=== PATIENT | female | born 1980 | race Caucasian/White ===

== ENCOUNTER → 2020-05-10 | Outpatient (CLI) | payer OTHER ==
[~2020-05-10] MED LIST: DIPH50 PO; FLUO10 PO; Ventolin/Prove6.7 GM INH; Zofran Odt4 MG PO
[2020-05-12 01:08] LABS: CHLAMYDIA TRACHOMATIS, NAA Negative (Negative); NEISSERIA GONORRHOEAE, NAA Negative (Negative)
== END | disposition home or self-care (01) ==
LOC: LAB 16:04 → LAB SHORT 16:04
PROVIDERS: Nurse Practitioner Family
DX: Z11.59 Encounter for screening for other viral diseases (principal)
CPT/HCPCS: 87491; 87591

== ENCOUNTER → 2021-03-30 | Outpatient (CLI) | payer OTHER | LOC: LAB SHORT 09:27 → LAB 09:27 | DX: R10.9 Unspecified abdominal pain (principal); Z88.8 Allergy status to other drugs, medicaments and biological substances; Z91.013 Allergy to seafood | CPT/HCPCS: 87086 ==

== ENCOUNTER → 2021-04-21 | Outpatient (CLI) | payer OTHER ==
[2021-04-21 13:39] LABS: BASOPHILS ABSOLUTE AUTO 0.02 K/mm3 (0.00-0.23); BASOPHILS PERCENT AUTO 0 % (0-2); EOSINOPHILS ABSOLUTE AUTO 0.27 K/mm3 (0.00-0.68); EOSINOPHILS PERCENT AUTO 4 % (0-6); Hematocrit 42.3 % (33.0-51.0); Hemoglobin 14.6 g/dL (11.5-16.0); IMMATURE GRAN ABSOLUTE AUTO 0.01 K/mm3 (0.00-0.10); IMMATURE GRAN PERCENT AUTO 0 % (0-1); LYMPHOCYTES ABSOLUTE AUTO 1.93 K/mm3 (0.84-5.20); LYMPHOCYTES PERCENT AUTO 28 % (21-46); MONOCYTES ABSOLUTE AUTO 0.76 K/mm3 (0.16-1.47); MONOCYTES PERCENT AUTO 11 % (4-13); Mean Corpuscular HGB 31.5 pg (26.0-34.0); Mean Corpuscular HGB Conc 34.5 g/dL (31.5-36.5); Mean Corpuscular Volume 91 fL (80-100); Mean Platelet Volume 11.8 fL (9.1-12.4); NEUTROPHILS ABSOLUTE AUTO 3.89 K/mm3 (1.96-9.15); NEUTROPHILS PERCENT AUTO 57 % (41-73); Platelet Count 219 K/mm3 (150-400); RDW Coefficient Variation 12.7 % (11.7-14.2); RDW Standard Deviation 42.3 fL (35.1-46.3); Red Blood Cell Count 4.63 M/mm3 (3.80-5.20); White Blood Cell Count 6.88 K/mm3 (4.00-11.30)
[2021-04-21 14:11] LABS: Alanine Aminotransfer (ALT/SGP 35 U/L (12-78); Albumin, Blood 3.7 g/dL (3.4-5.0); Albumin/Globulin Ratio 0.9 (0.8-1.8); Alk Phos 44 U/L (50-136); Anion Gap 3 mmol/L (6-16); Aspartate Aminotrans (AST/SGOT 16 U/L (12-37); Bilirubin, Total 0.4 mg/dL (0.1-1.0); Blood Urea Nitrogen 12 mg/dL (8-24); Bun/Creatinine Ratio 14.8 (12.0-20.0); CO2, Blood 29 mmol/L (21-32); Chloride, Blood 105 mmol/L (98-108); Creatinine, Blood 0.81 mg/dL (0.40-1.00); Globulin, Blood 4.3 g/dL (2.2-4.0); Glomerular Filtration Rate >60 (60-); Glucose, Blood 87 mg/dL (70-99); Potassium, Blood 4.3 mmol/L (3.5-5.5); Sodium, Blood 137 mmol/L (136-145)
== END | disposition home or self-care (01) ==
LOC: LAB SHORT 11:30 → LAB 11:30
PROVIDERS: Nurse Practitioner Family
DX: Z13.29 Encounter for screening for other suspected endocrine disorder (principal); N93.9 Abnormal uterine and vaginal bleeding, unspecified
CPT/HCPCS: 80053; 84443; 84702; 85025

== ENCOUNTER → 2021-05-08 | Outpatient (CLI) | payer OTHER | END | disposition home or self-care (01) | LOC: LAB SHORT 18:16 | DX: R35.0 Frequency of micturition (principal) | CPT/HCPCS: 87086 ==

== ENCOUNTER → 2022-04-04 | Outpatient (CLI) | payer OTHER | END | disposition home or self-care (01) | LOC: LAB 16:50 → LAB SHORT 16:50 | DX: N39.0 Urinary tract infection, site not specified (principal) | CPT/HCPCS: 87077; 87086; 87186 ==

== ENCOUNTER 2023-01-23 20:42 | Inpatient (IN) | payer OTHER ==
[~2023-01-23] VITALS: Ht 157.5 cm; Wt 72.7 kg
[2023-01-23 21:37] VITALS: BP 120/80
[2023-01-23 21:40] LABS: BASOPHILS ABSOLUTE AUTO 0.01 K/mm3 (0.00-0.23); BASOPHILS PERCENT AUTO 0 % (0-2); EOSINOPHILS ABSOLUTE AUTO 0.07 K/mm3 (0.00-0.68); EOSINOPHILS PERCENT AUTO 1 % (0-6); Hematocrit 33.4 % (33.0-51.0); Hemoglobin 12.2 g/dL (11.5-16.0); IMMATURE GRAN ABSOLUTE AUTO 0.02 K/mm3 (0.00-0.10); IMMATURE GRAN PERCENT AUTO 0 % (0-1); LYMPHOCYTES ABSOLUTE AUTO 1.78 K/mm3 (0.84-5.20); LYMPHOCYTES PERCENT AUTO 22 % (21-46); MONOCYTES ABSOLUTE AUTO 0.85 K/mm3 (0.16-1.47); MONOCYTES PERCENT AUTO 11 % (4-13); Mean Corpuscular HGB 32.5 pg (26.0-34.0); Mean Corpuscular HGB Conc 36.5 g/dL (31.5-36.5); Mean Corpuscular Volume 89 fL (80-100); Mean Platelet Volume 11.4 fL (9.1-12.4); NEUTROPHILS ABSOLUTE AUTO 5.31 K/mm3 (1.96-9.15); NEUTROPHILS PERCENT AUTO 66 % (41-73); Platelet Count 179 K/mm3 (150-400); RDW Coefficient Variation 12.4 % (11.7-14.2); RDW Standard Deviation 39.8 fL (35.1-46.3); Red Blood Cell Count 3.75 M/mm3 (3.80-5.20); White Blood Cell Count 8.04 K/mm3 (4.00-11.30)
[2023-01-23] MEDS ORDERED: PRENATAL TABLE1 EAC2 PO (22:25)
[2023-01-23 23:56] VITALS: BP 121/73
[2023-01-24] VITALS (18 sets, daily range): BP systolic 115–137; BP diastolic 67–89
--- NOTE | 2023-01-24 06:43 | NUR ---
FOB INVOLVEMENT: UPON ADMISSION PT STATES SHE WONT ALLOW FO[place]odia TO PARENT WITHOUT GETTING HELP. PT ALSO ADMITS THAT SHE IS AWARE SHE WOULD BENEFIT FROM RECIEVING COUNSELING FOR PREVIOUS LIFE EVENTS. PT BELIEVES ARIELA TO CURRENTLY BE ON DRUGS, WIHTOUT EVIDENCE OTHER THAN FOB ADMITTING TO HAVING BEEN UP FOR 48 HOURS STRAIGHT. PT HAS CUT MOST CONTACT WITH FOB AND IS UNSURE ON IF THEIR RELATIONSHIP WILL CONTINUE AT THIS TIME. PT ADMITS THAT ARIELA IS "UNFIT TO PARENT WITHOUT GETTING HELP FOR HIS DRUGS, GETTING A JOB, AND HOLDING DOWN A JOB". FOB HAD REACHED OUT TO PT MULTIPLE TIMES DURING FLOOR COVERER APPRENTICE, PT DENIES RESPONDING OR TELLING FOB ABOUT INDUCTION. PASSWORD IN PLACE FOR CONFIDENTIALITY.
--- NOTE | 2023-01-24 08:00 | NUR ---
PT EDUCATED ON [facility] NO SMOKING POLICY WELL RISK OF IGNITABLES IN ROOM INCLUDING BUT NOT LIMITED TO LIGHTERS, VAPE PENS, CANDLES, ETC. PT STATES UNDERSTANDING AND DENIES HAVING ANY OF THESE ITEMS.
--- NOTE | 2023-01-24 09:45 | NUR ---
FOB Pt divolging hx with FOB- States he's not around but has continued to text her throughout the night/morning. He was with her at her last OB appointment. She tells this RN that she was recently with him but has her own apartment, although he knows where it is. She was apparently going to get a restraining order the day she came in for induction but states she woke up at 8:30 and she had to be there by 7:30. She reports that he has been using meth and is not right in the head, that he was wanting her to refuse all nb care but she told him no. She also states he is not allowed around her youngest daughter d/t [place] allegations, although she states those were unfounded.
--- NOTE | 2023-01-24 15:20 | NUR ---
PT DECLINING TO HAVE BP CUFF REMAIN ON FOR RECOVERY PERIOD SHE STATES IT'S IN THE WAY OF /HOLDING NB.
[2023-01-25 02:58] VITALS: BP 113/75
[2023-01-25 05:59] LABS: Hematocrit 34.2 % (33.0-51.0); Hemoglobin 12.2 g/dL (11.5-16.0); Mean Corpuscular HGB 31.8 pg (26.0-34.0); Mean Corpuscular HGB Conc 35.7 g/dL (31.5-36.5); Mean Corpuscular Volume 89 fL (80-100); Mean Platelet Volume 11.5 fL (9.1-12.4); Platelet Count 164 K/mm3 (150-400); RDW Coefficient Variation 12.6 % (11.7-14.2); RDW Standard Deviation 40.8 fL (35.1-46.3); Red Blood Cell Count 3.84 M/mm3 (3.80-5.20); White Blood Cell Count 11.28 K/mm3 (4.00-11.30)
[2023-01-25 07:58] VITALS: BP 114/71
[2023-01-25 11:28] VITALS: BP 135/83
[2023-01-25 14:16] VITALS: BP 124/83
[2023-01-25 17:45] VITALS: BP 126/93
== END 2023-01-25 18:05 | disposition home or self-care (01) | DRG 807 ==
LOC: OBS 20:42 → BC 20:44 → OBS 20:55 → BC 20:56
PROVIDERS: ADMIT Advanced Practice Midwife
PROC: 10E0XZZ Delivery of Products of Conception, External Approach (ICD-10-PCS; principal; 2023-01-24)
PROC: 3E033VJ Introduction of Other Hormone into Peripheral Vein, Percutaneous Approach (ICD-10-PCS; 2023-01-24)
PROC: 3E0P7VZ Introduction of Hormone into Female Reproductive, Via Natural or Artificial Opening (ICD-10-PCS; 2023-01-24)
DX: O80 Encounter for full-term uncomplicated delivery (principal); Z37.0 Single live birth; O69.1XX0 Labor and delivery complicated by cord around neck, with compression, not applicable or unspecified; Z3A.39 39 weeks gestation of pregnancy; Z67.10 Type A blood, Rh positive; Z88.8 Allergy status to other drugs, medicaments and biological substances; Z91.030 Bee allergy status; Z91.038 Other insect allergy status; Z91.013 Allergy to seafood
CPT/HCPCS: 36415; 85025; 85027; 86850; 86900; 86901; A9270; J1885; J2210; J2590; J3010; J7120

== ENCOUNTER 2024-04-22 13:36 | Emergency (ER) | payer OTHER ==
[~2024-04-22] VITALS: Ht 154.9 cm; Wt 68.0 kg
[~2024-04-22 13:36] MED LIST changes: +PRENATAL TABLE1 EAC2 PO
[2024-04-22 14:51] LABS: BASOPHILS ABSOLUTE AUTO 0.04 K/mm3 (0.00-0.23); BASOPHILS PERCENT AUTO 1 % (0-2); EOSINOPHILS ABSOLUTE AUTO 0.32 K/mm3 (0.00-0.68); EOSINOPHILS PERCENT AUTO 4 % (0-6); Hemoglobin 14.5 g/dL (11.5-16.0); IMMATURE GRAN ABSOLUTE AUTO 0.01 K/mm3 (0.00-0.10); IMMATURE GRAN PERCENT AUTO 0 % (0-1); LYMPHOCYTES PERCENT AUTO 27 % (21-46); MONOCYTES ABSOLUTE AUTO 0.53 K/mm3 (0.16-1.47); MONOCYTES PERCENT AUTO 7 % (4-13); Mean Corpuscular HGB 31.8 pg (26.0-34.0); Mean Corpuscular HGB Conc 35.4 g/dL (31.5-36.5); Mean Corpuscular Volume 90 fL (80-100); Mean Platelet Volume 10.5 fL (9.1-12.4); NEUTROPHILS ABSOLUTE AUTO 4.59 K/mm3 (1.96-9.15); NEUTROPHILS PERCENT AUTO 61 % (41-73); Platelet Count 251 K/mm3 (150-400); RDW Coefficient Variation 12.9 % (11.7-14.2); RDW Standard Deviation 42.3 fL (35.1-46.3); Red Blood Cell Count 4.56 M/mm3 (3.80-5.20); White Blood Cell Count 7.49 K/mm3 (4.00-11.30)
[2024-04-22 15:17] LABS: Albumin/Globulin Ratio 1.2 (0.8-1.8); Bilirubin, Total 0.4 mg/dL (0.1-1.0); Bun/Creatinine Ratio 23.3 (12.0-20.0); Calcium, Blood 8.9 mg/dL (8.5-10.1); Creatinine, Blood 0.69 mg/dL (0.40-1.00); Globulin, Blood 3.3 g/dL (2.2-4.0); Potassium, Blood 3.7 mmol/L (3.5-5.5); Total Protein, Blood 7.3 g/dL (6.4-8.2)
[2024-04-22 19:44] VITALS: BP 145/98
== END 2024-04-22 19:40 | disposition home or self-care (01) ==
LOC: ER 13:36
PROVIDERS: Physician Assistant
DX: R13.10 Dysphagia, unspecified (principal); Z04.71 Encounter for examination and observation following alleged adult physical abuse; G43.909 Migraine, unspecified, not intractable, without status migrainosus; J45.909 Unspecified asthma, uncomplicated; Z79.899 Other long term (current) drug therapy; Z91.030 Bee allergy status; Z91.013 Allergy to seafood; Z88.8 Allergy status to other drugs, medicaments and biological substances
CPT/HCPCS: 36415; 70490; 80053; 85025; 99284-25